=== PATIENT | female | born 1955 | race Caucasian/White ===

== ENCOUNTER 2022-12-16 19:24 | Emergency (ER) | payer BC, SELFPAY ==
--- NOTE | ~2022-12-16 | XR_ITS ---
EXAMINATION: XR chest 2V DATE: 12/16/2022 19:50 INDICATION: Cough. TECHNIQUE: Frontal and lateral views of the chest were obtained. COMPARISON: Chest 2 views 08/26/2011 FINDINGS: The chest demonstrates clear lungs without pneumonia, pleural effusion, or pneumothorax. Th e heart size is normal. Surgical clips in the right upper quadrant are likely from cholecystectomy. IMPRESSION: 1. No acute cardiopulmonary disease. Reviewed, dictated and finalized at location E.
--- NOTE | 2022-12-16 19:30 | ED.URI ---
HPI - URI/Sore Throat General Chief Complaint: Upper Respiratory Infection Stated Complaint: Fatigue,Headache,Lt Side Pain Time Seen by Provider: 12/16/22 19:38 Source: patient and RN notes reviewed Mode of arrival: ambulatory Limitations: no limitations History of Present Illness HPI Narrative: 67-year-old female presents with concern for cough, fatigue, headache, pain in her back at the base of her lungs worse on the left side. She reports she was diagnosed with COVID on December 02, she was treated from her software clerk with paxlovid, steroids and was given a prescription for levofloxacin. She reports low-grade fever she reports her sinus congestion has resolved MD elicited complaint: cough Related Data Home Medications Medication Instructions Recorded Confirmed acidophilus 100 million 1 cap PO DAILY 10/05/22 12/16/22 cell-pectin, citrus 10 mg capsule acyclovir 800 mg tablet 800 mg PO DAILY 10/05/22 12/16/22 aspirin 81 mg tablet,delayed 81 mg PO DAILY 10/05/22 12/16/22 release atorvastatin 20 mg tablet 20 mg PO DAILY 10/05/22 12/16/22 cholecalciferol (vitamin D3) 1,250 1,250 mcg PO WEEKLY 10/05/22 12/16/22 mcg (50,000 unit) capsule furosemide 20 mg tablet 20 mg PO QAM 10/05/22 12/16/22 meloxicam 15 mg tablet 15 mg PO DAILY 10/05/22 12/16/22 metoprolol succinate 50 mg 50 mg PO DAILY 10/05/22 12/16/22 tablet,extended release 24 hr multivitamin 1 tablet PO DAILY 10/05/22 12/16/22 nitroglycerin 0.4 mg sublingual 0.4 mg sublingual Q5M PRN Pain 10/05/22 12/16/22 tablet omeprazole 20 mg capsule,delayed 40 mg PO BID 10/05/22 12/16/22 release potassium gluconate 2.5 mEq tablet 2.5 meq PO DAILY 10/05/22 12/16/22 umeclidinium 62.5 mcg/actuation 1 inh inhalation DAILY 10/05/22 12/16/22 blister powder for inhalation Allergies Allergy/AdvReac Type Severity Reaction Status Date / Time petrolatum,white Allergy Severe BLISTERS Verified 12/16/22 19:38 codeine Allergy Unknown Unknown Verified 12/16/22 19:38 Iodinated Contrast Media Allergy Unknown Unknown Verified 12/16/22 19:38 iodine Allergy Unknown Unknown Verified 12/16/22 19:38 povidone-iodine Allergy Unknown BLISTERS Verified 12/16/22 19:38 soap Allergy Unknown BLISTERS Verified 12/16/22 19:38 tetracycline Allergy Unknown Unknown Verified 12/16/22 19:38 CEFAZOLIN SODIUM Allergy Intermediate ITCHY Uncoded 12/16/22 19:38 EVERYWHERE SHELLFISH Allergy Intermediate BLISTERS Uncoded 12/16/22 19:38 Review of Systems Review of Systems: CONSTITUTIONAL: Reports malaise, fatigue, low-grade fever. EYES: Denies visual changes, redness, or discharge. ENT: Denies rhinorrhea, congestion, sinus pain, otalgia and sore throat. CARDIOVASCULAR: Denies chest pain, palpitations, or edema. RESPIRATORY: Reports cough, back pain with coughing. Denies dyspnea. GASTROINTESTINAL: Denies abdominal pain, nausea, vomiting, diarrhea SKIN: Denies rash or itching. MUSCULOSKELETAL: Denies myalgia. NEUROLOGIC: Denies headache. Reports brain fog All systems reviewed & are unremarkable except as noted in HPI and below PMFSH Past Medical History Medical History Migraine Rheumatoid arteritis Surgical History Surgical History H/O: hysterectomy ~2010 History of back surgery 1989 History of cholecystectomy Family History Family History Sibling Family history of premature coronary heart disease, Onset Age: 45 Carcinoma of colon, Onset Age: 40 Patient's brother is Father Hypertension Family history of elevated blood lipids Family history of diabetes mellitus in first degree relative Family history of coronary artery disease Cerebrovascular accident Mother Hypertension Family history of elevated blood lipids Carcinoma of colon Daughter Depression Anxiety Other Family history o
[2022-12-16 19:32] VITALS: BP 135/78; PULSE 92; RESP 18; TEMP 36.2; O2SAT 97
== END 2022-12-16 20:05 | disposition home or self-care (01) ==
PROVIDERS: Emergency Provider Nurse Practitioner; PCP Physician Assistant
DX: G93.32 Myalgic encephalomyelitis/chronic fatigue syndrome (principal); U09.9 Post COVID-19 condition, unspecified; M06.9 Rheumatoid arthritis, unspecified; Z79.82 Long term (current) use of aspirin
CPT/HCPCS: 71046; 99213; G0463

== ENCOUNTER 2023-12-05 11:11 | Outpatient (CLI) | payer BC, SELFPAY ==
--- NOTE | ~2023-12-05 | XR_ITS ---
Supine and upright views of the abdomen Clinical history: Diarrhea Findings: Bowel gas pattern is nonspecific. No evidence for obstruction or free air. No abnormal mass lesion or calcification is seen. Osseous structures are intact. Impression: No significant abnormality is seen. Reviewed, dictated and finalized at [facility]. Impression: No significant abnormality is seen.
[2023-12-05 19:18] LABS: Hematocrit 40.2 % (37.0-47.0); Hemoglobin 12.6 g/dL (12.0-15.0); Mean Corpuscular HGB Conc 31.3 g/dl (32-36); Mean Corpuscular Hemoglobin 27.6 pg (26-34); Mean Corpuscular Volume 88.2 fl (80-100); Mean Platelet Volume 9.3 fl (7.4-10.4); Platelet Count Result 362 k/mm3 (150-375); Red Blood Count 4.56 M/mm3 (4.2-5.4); Red Cell Distribution Width 14.7 % (11.5-14.5); White Blood Count 8.5 K/mm3 (4.5-10.0)
[2023-12-05 19:26] LABS: Alanine Aminotransferase 29 U/L (6-35); Albumin Level 4.3 g/dL (3.5-5.1); Alkaline Phosphatase 89 U/L (38-126); Anion Gap 8 mmol/L (4-12); Aspartate Amino Transferase 43 U/L (14-36); Bilirubin,Total 0.6 mg/dL (0.2-1.3); Blood Urea Nitrogen 10 mg/dL (7-17); Calcium 9.7 mg/dL (8.4-10.2); Carbon Dioxide 29 mmol/L (22-30); Chloride 101 mmol/L (98-107); Cholesterol 144 mg/dL (0-200); Estimated Glomerular Filt Rate > 60; Glucose 99 mg/dL (65-110); HDL Direct 43 mg/dL; Potassium 3.3 mmol/L (3.4-5.0); Sodium 138 mmol/L (137-145); Triglycerides 231 mg/dL (<150)
[2023-12-05 19:37] LABS: LDL Cholesterol Direct 73 mg/dL
[2023-12-05 20:27] LABS: Erythrocyte Sedimentation Rate 21 mm/hr (0-20)
[2023-12-05 20:37] LABS: Folic Acid > 20.0 ng/mL (2.76->20)
[2023-12-05 20:40] LABS: Hemoglobin A1C 5.8 % (<5.7); Vitamin D 25 Hydroxy 25.8 ng/mL
[2023-12-06 15:32] LABS: ANA Cascade Screen NEGATIVE (NEGATIVE)
== END 2023-12-05 11:12 | disposition home or self-care (01) ==
PROVIDERS: PCP Nurse Practitioner Adult Health; Visit Provider Nurse Practitioner Adult Health
DX: R19.7 Diarrhea, unspecified (principal); I50.9 Heart failure, unspecified; R73.03 Prediabetes; M25.50 Pain in unspecified joint; E78.5 Hyperlipidemia, unspecified; R53.83 Other fatigue; E55.9 Vitamin D deficiency, unspecified; M79.672 Pain in left foot
CPT/HCPCS: 36415; 73630; 74018; 80053; 80061; 82306; 82607; 82746; 83036; 84443; 85027; 85652; 86038; 86225; 86235; 86364

== ENCOUNTER 2023-12-14 15:51 | Outpatient (CLI) | payer BC, SELFPAY | END 2023-12-14 15:52 | disposition home or self-care (01) | LOC: ANHLAB 15:52 | PROVIDERS: PCP Nurse Practitioner Adult Health; Visit Provider Nurse Practitioner Adult Health | DX: R19.7 Diarrhea, unspecified (principal) | CPT/HCPCS: 87045; 87427; 87449 ==

== ENCOUNTER 2024-04-09 09:22 | Outpatient (CLI) | payer BC, SELFPAY ==
[2024-04-09 18:35] LABS: Basophils Percent Auto 0.3 % (0.2-1.2); Eosinophils Absolute Auto 0.3 K/mm3 (0-0.3); Eosinophils Percent Auto 4.2 % (0-4.4); Hematocrit 39.5 % (37.0-47.0); Hemoglobin 12.5 g/dL (12.0-15.0); Immature Granulocyte Absolute 0.01 K/mm3 (0.00-0.031); Immature Granulocyte Percent A 0.2 % (0-0.5); Lymphocytes Absolute Auto 2.63 K/mm3 (0.9-3.2); Lymphocytes Percent Auto 44.1 % (18.3-44.2); Mean Corpuscular HGB Conc 31.6 g/dl (32-36); Mean Corpuscular Hemoglobin 29.1 pg (26-34); Mean Corpuscular Volume 91.9 fl (80-100); Mean Platelet Volume 9.6 fl (7.4-10.4); Monocytes Absolute Auto 0.5 K/mm3 (0.1-0.6); Monocytes Percent Auto 8.6 % (2.6-8.5); Neutrophils Absolute Auto 2.5 K/mm3 (1.3-6.7); Neutrophils Percent Auto 42.6 % (45.5-73.1); Platelet Count Result 273 k/mm3 (150-375)
[2024-04-09 19:04] LABS: Alanine Aminotransferase 38 U/L (6-35); Albumin Level 4.4 g/dL (3.5-5.1); Alkaline Phosphatase 87 U/L (38-126); Anion Gap 8 mmol/L (4-12); Aspartate Amino Transferase 83 U/L (14-36); Bilirubin,Total 1.1 mg/dL (0.2-1.3); Blood Urea Nitrogen 17 mg/dL (7-17); Carbon Dioxide 26 mmol/L (22-30); Chloride 98 mmol/L (98-107); Estimated Glomerular Filt Rate > 60; Glucose 85 mg/dL (65-110); Potassium 4.1 mmol/L (3.4-5.0); Sodium 132 mmol/L (137-145)
[2024-04-09 19:25] LABS: Hemoglobin A1C 6.1 % (<5.7)
[2024-04-09 20:40] LABS: Vitamin D 25 Hydroxy 20.7 ng/mL
== END 2024-04-09 09:23 | disposition home or self-care (01) ==
PROVIDERS: PCP Nurse Practitioner Adult Health; Visit Provider Nurse Practitioner Adult Health
DX: R73.03 Prediabetes (principal); E78.5 Hyperlipidemia, unspecified; R20.2 Paresthesia of skin; E55.9 Vitamin D deficiency, unspecified
CPT/HCPCS: 36415; 80053; 82306; 82607; 83036; 84443; 85025

== ENCOUNTER 2024-05-08 10:09 | Outpatient (CLI) | payer BC, SELFPAY | END 2024-05-08 10:10 | disposition home or self-care (01) | LOC: ANHBWCAUD 10:10 | PROVIDERS: PCP Nurse Practitioner Adult Health; Visit Provider Nurse Practitioner Adult Health | DX: H90.3 Sensorineural hearing loss, bilateral (principal) | CPT/HCPCS: 92557; 92567 ==

== ENCOUNTER 2024-08-12 18:31 | Emergency (ER) | payer BC, SELFPAY ==
--- NOTE | 2024-08-12 18:33 | ED_ITS ---
HPI - Eye Problem General Chief complaint: Eye Problems Stated complaint: lt eye irritation Time Seen by Provider: 08/12/24 18:33 Source: patient Mode of arrival: ambulatory Limitations: no limitations History of Present Illness HPI Narrative: Patient is a 69-year-old female presents with left eye irritation. Patient states she got something in her eye while at [employer] and has been constant pain and watering since. Patient does have some photophobia and blurred vision. Patient has history of permanent lens surgery. Patient states she irrigated eye with eye wash solution at home with no relief of symptoms. Related Data Home Medications ?Medication ?Instructions ?Recorded ?Confirmed ?Last Taken ?Type aspirin 81 mg tablet,delayed 81 mg PO DAILY 10/05/22 04/09/24 Unknown History release atorvastatin 20 mg tablet 20 mg PO DAILY 10/05/22 04/09/24 Unknown History furosemide 20 mg tablet 20 mg PO QAM 10/05/22 04/09/24 Unknown History multivitamin 1 tablet PO DAILY 10/05/22 04/09/24 Unknown History nitroglycerin 0.4 mg sublingual 0.4 mg sublingual Q5M PRN Pain 10/05/22 04/09/24 Unknown History tablet albuterol sulfate 90 mcg/actuation 1 inh inhalation Q4H PRN 12/05/23 04/09/24 Unknown History aerosol inhaler (Ventolin HFA) bronchospasm fluticasone fur. 200 mcg-umeclid 1 inh inhalation DAILY 12/05/23 04/09/24 Unknown History 62.5 mcg-vilant 25 mcg inhalat.powder (Trelegy Ellipta) metoprolol succinate 50 mg See Rx Instructions PO DAILY 12/05/23 04/09/24 Unknown History tablet,extended release 24 hr Allergies Allergy/AdvReac Type Severity Reaction Status Date / Time petrolatum,white Allergy Severe BLISTERS Verified 04/09/24 08:47 codeine Allergy Unknown Unknown Verified 04/09/24 08:47 Iodinated Contrast Media Allergy Unknown Unknown Verified 04/09/24 08:47 iodine Allergy Unknown Unknown Verified 04/09/24 08:47 povidone-iodine Allergy Unknown BLISTERS Verified 04/09/24 08:47 soap Allergy Unknown BLISTERS Verified 04/09/24 08:47 tetracycline Allergy Unknown Unknown Verified 04/09/24 08:47 CEFAZOLIN SODIUM Allergy Intermediate ITCHY Uncoded 04/09/24 08:47 EVERYWHERE SHELLFISH Allergy Intermediate BLISTERS Uncoded 04/09/24 08:47 Review of Systems 2 Review of Systems: All systems reviewed & are unremarkable except as noted in HPI and below Constitutional: Constitutional: Denies body ache(s), Denies fever(s), Denies headache(s), Denies malaise and Denies weakness Eyes: Eyes: Reports blurry vision, Denies loss of vision, Reports eye pain and Reports photophobia ENT: Denies otalgia, Denies headache(s), Denies nasal discharge, Denies sinus pain and Denies sore throat Cardiovascular: Cardiovascular: Denies chest pain, Denies irregular heart rhythm and Denies dyspnea Respiratory: Respiratory: Denies dyspnea Gastrointestinal: Gastrointestinal: Denies abdominal pain, Denies diarrhea, Denies nausea and Denies vomiting Musculoskeletal: Musculoskeletal: Denies back pain, Denies myalgias and Denies arthralgias Integumentary/Breasts: Skin/Breast: Denies pruritus and Denies rash Neurologic: Denies headache(s), Denies loss of vision and Denies weakness Psychiatric: Psychiatric: Reports no additional psychiatric complaints Allergic/Immunologic: Allergic/Immunologic: Reports itchy eyes PMFSH Past Medical History Medical History Hypokalemia Hyperlipidemia Prediabetes Screening for colon cancer Low back pain radiating to both legs BMI 35.0-35.9,adult CAD (coronary artery disease) ASHLEY on CPAP Asthma Encounter to establish care Vitamin D deficiency Migraine Rheumatoid arteritis Surgical History Surgical History History of cholecystectomy H/O: hysterectomy ~2009 History of back surgery 1989 Family History Family History Sibling Family history of premature coronary heart disease, Onset Age: 45 Carcinoma of colon, Onset Age: 40 Patient's brother is Father Hypertension Family history of elevated blood lipids Family history of diabetes mellitus in first degree relative Family history of coronary artery disease Cerebrovascular accident Mother Hypertension Family history of elevated blood lipids Carcinoma of colon Daughter Depression Anxiety Other Family history of hearing loss Family history of osteoporosis Social History Social History Smoking status: Former smoker Alcohol intake: never Substance use: never Substance use type: does not use Do You Feel Safe in your Home?: Yes Living arrangements: with family Gender identity (if verbalized by the patient): Female Agree to blood products: Yes Comments At time of signature, agree with nursing past medical, surgical, social and family history. There is no relevant family history pertinent to the presenting complaint. Exam 2 Const: General: cooperative, healthy appearing, comfortable, no acute distress and well nourished Nutritional Appearance: well nourished O rientation/consciousness: patient oriented x3 Limitations: no limitations HENMT: Head: normal to inspection, normocephalic and atraumatic Ears: e xternal ears normal Face/Nose/Sinus: Normal external nose present, normal facial exam and face symmetric Face and sinus: normal facial exam and face symmetric Mouth: Yes lip normal Eyes: General: appearance normal, both eyes and all related structures V isual Loomis: normal visual loomis by confrontation Alignment and Position: a lignment normal and position normal Periorbital: periorbital findings normal Eyelids: eyelids normal Conjunctivae: conjunctivae normal Sclera: s cleral abnormality left scleral injection diffuse Cornea: corneas abnormal on the left fluorescein used and abrasion at the following clock position (6 o'clock); with no foreign body noted and fluorescein used Pupils: Equal, round and reactive pupils present EOM: EOMs intact bilaterally Direct Ophthalmoscopy: photophobia Other: No hyphema, no foreign body under the lids. Eyes/upper lids images: 1. Corneal abrasion noted. diagram proportional to size, 0.25 cm circular Neck: Neck: normal visual inspection, full ROM, no lymphadenopathy and no meningeal signs Chest: Chest palpation & inspection: normal inspection of the chest Resp: Effort & Inspection: normal respiratory effort and able to speak in complete sentences Auscultation: clear to auscultation bilaterally Cardio: Rate: regular rate Rhythm: regular rhythm Heart sounds: S1 normal heart sound present and S2 normal heart sound present GI: Inspection: normal to inspection Skin: General skin exam: normal color and no rashes or lesions noted Neuro: General: patient oriented x3, moves all extremities and no meningeal signs Cranial nerves: Yes Equal, round and reactive pupils present Speech: normal speech Gait exam (Neuro): Normal gait present Extrem: General: normal to inspection, full ROM and no edema Psych: Appearance: grossly normal and well kempt Mental Status: mental status grossly normal Speech and movement: Normal speech and movement present Affect: normal affect Attitude: cooperative Thought process: Normal thought process present Course Course Emergency Course: Patient is aware of diagnosis, understands and agrees to treatment plan. Anticipatory guidance given. Patient agrees to follow-up as directed and is aware of reasons to seek care at the emergency department. Portions of this record may have been created with voice recognition software Level of Care: Express Care Visit Vital Signs Vital signs: Reviewed MDM - Eye Problem MDM Narrative Medical decision making narrative: Exam performed on patient. Corneal abrasion found. Discussed follow-up ophthalmology if symptoms are not improving. Pt well hydrated appearing, in no respiratory distress, hemodynamically stable. Recommend supportive care. The patient is stable at time of discharge the clinical impression was discussed and the patient was given the opportunity to ask questions, which were addressed as completely as possible given the information available at present. Anticipatory guidance and return to care precautions were discussed and the importance of primary care follow-up was stressed and encouraged. The patient voiced understanding of the plan, indications to return, and the need for follow-up. Exam findings show no acute concerns or changes Patient is appropriate for outpatient treatment and follow-up. Differential Diagnosis Differential diagnosis: Likely corneal abrasion, conjunctivitis and corneal ulcer Medical Records Attestation: I reviewed the patient's medical records. Discharge Plan Discharge Clinical Impression: Corneal abrasion Qualifiers: Encounter type: initial encounter Laterality: left Qualified Code(s): S05.02XA - Injury of conjunctiva and corneal abrasion without foreign body, left eye, initial encounter Patient Disposition: Home, Self-Care Condition: Stable Instructions: Corneal Abrasion (ED) Additional Instructions: Corneal abrasions will heal in 1-2 days. Use antibiotic eye drop as prescribed Keep your eye shut and wearing sunglasses or staying in low light to avoid light sensitivity. Do not touch or rub your eye or use a fabric patch ( pirate's patch ) You may take Tylenol or ibuprofen for pain Follow-up with PCP or insurance associate if condition is not improving in 2-3days. Patient Language: [place] Prescriptions: New ciprofloxacin HCl 0.3 % drops See Rx Instructions .ROUTE .COMPLEX Qty: 10 0RF Rx Instructions: put 1-2 drps in left eye every 2hr up to 8 times/day x2days; then 4 times/day x5days No Action albuterol sulfate [Ventolin HFA] 90 mcg/actuation HFA aerosol inhaler 1 inh inhalation Q4H PRN (Reason: bronchospasm) Trelegy Ellipta 200-62.5-25 mcg blister with device 1 inh inhalation DAILY aspirin 81 mg tablet,delayed release (DR/EC) 81 mg PO DAILY atorvastatin 20 mg tablet 20 mg PO DAILY furosemide 20 mg tablet 20 mg PO QAM multivitamin Tablet 1 tablet PO DAILY nitroglycerin 0.4 mg tablet, sublingual 0.4 mg sublingual Q5M PRN (Reason: Pain) Rx Instructions: do not exceed 3 doses per episode metoprolol succinate 50 mg tablet extended release 24 hr See Rx Instructions PO DAILY Rx Instructions: Take 1 in am and 1/2 in pm orally daily; omeprazole 40 mg capsule,delayed release(DR/EC) 40 mg PO BID Qty: 180 3RF metformin 500 mg tablet extended release 24 hr 500 mg PO DAILY Qty: 90 3RF potassium chloride 20 mEq tablet extended release 20 meq PO DAILY Qty: 90 3RF cholecalciferol (vitamin D3) 1,250 mcg (50,000 unit) capsule 1,250 mcg PO WEEKLY Qty: 12 1RF acyclovir 800 mg tablet 800 mg PO DAILY Qty: 90 3RF Wegovy 1.7 mg/0.75 mL pen injector 1.7 mg subcut WEEKLY Qty: 3 0RF Rx Instructions: administer weeks 13 through 16 of therapy Follow-up/Referrals: Gail Solis APRN [Primary Care Provider] - 3 Days Time of Disposition: 19:06
[2024-08-12 18:41] VITALS: BP 106/87; PULSE 72; RESP 18; TEMP 36.3; O2SAT 98
[2024-08-12] MEDS: DACRIOSE EYE IRRIGATION 118 ML BOTTLE LEFT EYE (18:53)
[2024-08-12] MEDS: TETRACAINE HCL 0.5% OPHTH SOLN 4 ML BTL LEFT EYE (18:53)
[2024-08-12] MEDS: FLUORESCEIN SOD 1 MG/STRIP LEFT EYE (18:53)
--- OUTSIDE RECORDS SUMMARY | 2024-08-16 10:51 | XMS_ITS | CONTINUITY OF CARE DOCUMENT ---
Author Name abelino roca Address Unknown Organization [facility] Office Address [id number] [place] [address] [address] [place] [address] Phone [phone] Care Team Providers Care Whittling Room Operator Name Role Phone Ganga OKEEFE, Unavailable [phone] BETZAIDA OKEEFE, MARCIAL Unavailable BETZAIDA OKEEFE, MARCIAL Unavailable INSURANCE PROVIDERS Payer name Policy type / Coverage type [place] red green party ID [facility] [id number]
--- OUTSIDE RECORDS SUMMARY | 2024-08-16 10:52 | XMS_ITS | Referral Summary ---
Author Organization [facility] [employer] Address [address] [place] [address] Care Team Providers Care Laborer Car Barn Name Role Phone Estrella Muhammad MD Primary Care Provider Source Comments [facility],non-owned Affiliates and Associated Physician Practices is amultiple site organization consisting of ambulatory clinics and hospital sitesin [place], [place], [place] and [place]. This disclosure is being madepursuant to the Care Everywhere program and may not contain all information available regarding this patient. Last updated 18.[facility] [employer] Allergies Active Allergy Reactions Criticality Noted Date Comments Codeine Psychiatric Medium 11/06/2018 Povidone Iodine Itching 11/06/2018 Shellfish Allergy Other 11/06/2018 Blocks her throat, itching and blistering Medications * Be aware that medications may not be up to date on this document. Alwaysverify current medications with the patient. Medication Sig Dispensed Refills Start Date End Date Status BREO ELLIPTA 100-25 MCG/INH inhaler Inhale 1 puff by mouth once daily 10/18/2018 Active furosemide (LASIX) 20 MG tablet Take 20 mg by mouth once daily 10/24/2018 Active metoprolol succinate XL 24hr (TOPROL XL) 50 MG tablet Take 50 mg by mouth once daily 1.5 tablets Daily 10/16/2018 Active INCRUSE ELLIPTA 62.5 MCG/INH inhaler Inhale 1 puff by mouth once daily 10/18/2018 Active acyclovir (ZOVIRAX) 800 MG tablet Take 800 mg by mouth once daily Active potassium chloride ER (KLOR-CON M) 10 MEQ tablet Take 10 mEq by mouth once daily Active Multiple Vitamin (MULTI VITAMIN DAILY PO) Active atorvastatin (LIPITOR) 10 MG tablet Take 10 mg by mouth at bedtime Active Probiotic Product (PROBIOTIC DAILY PO) Acti ve albuterol HFA (PROVENTIL;VENTOLIN; PROAIR) 108 (90 BASE) MCG/ACT inhalerIndications:U ncomplicated asthma, unspecified asthma severity, unspecified whether persistent (HCC) Inhale 2 puffs by mouth every 6 hours as needed 11/06/2018 Active omeprazole EC (PRILOSEC OTC) 20 MG tabletIndications:Ga stroesophageal reflux disease, esophagitis presence not specified Take 1 tablet by mouth 2 times daily 180 tablet 3 01/02/2019 Active omeprazole (PRILOSEC) 20 MG capsuleIndications:G astroesophageal reflux disease, esophagitis presence not specified TAKE 1 CAPSULE BY MOUTH TWICE DAILY 180 capsule 3 06/06/2019 Active Immunizations Name Administration Dates Next Due INFLUENZA VACCINE 05/10/2018 PNEUMOCOCCAL PPSV23 11/07/2015 ZOSTER VACCINE, LIVE 01/02/2014 Social History Tobacco Use Types Packs/Day Years Used Date Smoking Tobacco: Former Cigarettes 0.3 15 0 08/08/1988 - 08/08/2003 Smokeless Tobacco: Never Tobacco Cessation:Counseling Given: Yes Alcohol Use Standard Drinks/Week Comments No 0 (1 standard drink = 0.6 oz pur e alcohol) Sex and Gender Information Value Date Recorded Sex Assigned at Not on file Gender Identity Not on file Sexual Orientation Not on file Last Filed Vital Signs Vital Sign Reading Time Taken Comments Blood Pressure 121/74 11/06/2018 3:20 PM CDT Pulse 70 11/06/2018 3:20 PM CDT Temperature - - Respiratory Rate - - Oxygen Saturation - - Inhaled Oxygen Concentration - - Weight 72.1 kg (159 lb) 01/02/2019 9:10 AM CDT Height 149.9 cm (4' 11 ) 01/02/2019 9:10 AM CDT Body Mass Index 32.11 01/02/2019 9:10 AM CDT Plan of Treatment Not on file Care Teams Laborer Car Barn Relationship Specialty Start Date End Date Estrella Muhammad MD [address] [place] [address] [place] [id number] PCP - General 02/06/18
--- OUTSIDE RECORDS SUMMARY | 2024-08-16 10:52 | XMS_ITS | Clinical Summary ---
Author Organization [facility] [address] Address [address] [place] [address] Care Team Providers Care Embosser Apprentice Name Role Phone Gail Solis ELLIOTT Primary Care Provider [phone] Allergies Active Allergy Reactions Criticality Noted Date Comments Codeine Iodine Medium Other Other (See comments) Low 11/06/2018 Blocks her throat, itching and blistering White Petrolatum Unknown Medium Shellfish Derived Anaphylaxis High 03/19/2022 Medications omeprazole (PriLOSEC) 20 mg capsule Take 1 capsule (20 mg total) by mouth daily Active cyclobenzaprin e (FLEXERIL) 10 mg tablet Take 1 tablet (10 mg total) by mouth 2 (two) times a day as needed for muscle spasms Active meloxicam (MOBIC) 15 mg tablet Take 1 tablet (15 mg total) by mouth daily Active acyclovir (ZOVIRAX) 800 mg tablet Take 1 tablet (800 mg total) by mouth daily Active cholecalcifero l (VITAMIN D-3) 50,000 unit capsule Take 1 capsule (50,000 Units total) by mouth once a week Active acidophilus-pe ctin, citrus 100 million cell-10 mg capsule Take by mouth daily Active aspirin 81 mg tablet Take 1 tablet (81 mg total) by mouth 2 (two) times a day Active multivitamin capsule Take 1 capsule by mouth daily Active nitroglycerin (NITROSTAT) 0.[address] 1 tablet (0.4 mg total) under the tongue every 5 (five) minutes as needed for chest pain Max 3 doses. 30 tablet 11 08/26/20 22 04/02/2 025 Active fluticasone propionate (FLONASE) 50 mcg/actuation nasal spray Administer 1 spray into each nostril daily Active EPINEPHrine 0.3 mg/0.3 mL auto-injection syringe INJECT 0.3MG IN THE MUSCLE ONE TIME DIRECTED IF CONTACT WITH SHELLFISH 05/17/20 Active famotidine (PEPCID) 40 mg tablet Take 1 tablet (40 mg total) by mouth daily 06/23/20 22 Active hydroCHLOROthi azide (MICROZIDE) 12.5 mg capsule Take 1 capsule (12.5 mg total) by mouth daily 06/26/20 22 Active metFORMIN XR (GLUCOPHAGE XR) 500 mg 24 hr tablet daily Active montelukast (SINGULAIR) 10 mg tablet Take 1 tablet (10 mg total) by mouth daily 05/31/20 22 Active rosuvastatin (CRESTOR) 10 mg tablet Take 1 tablet (10 mg total) by mouth daily 06/26/20 22 Active potassium chloride ER 20 mEq CR tablet Take 1 tablet (20 mEq total) by mouth daily 02/10/20 24 Active fluticasone-um eclidin-vilant er (Trelegy Ellipta) 200-62.5-25 mcg inhaler Inhale 1 puff daily 30 each 03/12/20 24 Active albuterol HFA (PROVENTIL HFA,VENTOLIN HFA,PROAIR HFA) 90 mcg/actuation inhaler Inhale 2 puffs every 6 (six) hours as needed for wheezing or shortness of breath 1 each 03/12/20 24 Active Wegovy 0.25 mg/0.5 mL auto-injector Inject 0.5 mL (0.25 mg total) under the skin every 7 days 04/23/20 24 Active furosemide (LASIX) 20 mg tablet TAKE 1 TABLET(20 MG) BY MOUTH TWICE DAILY 180 tablet 07/02/20 24 Active metoprolol XL (TOPROL-XL) 50 mg extended release tablet TAKE 1 AND 1/2 TABLETS(75 MG) BY MOUTH DAILY 135 tablet 08/08/19 25 Active metoprolol XL (TOPROL-XL) 50 mg extended release tablet TAKE 1 AND 1/2 TABLETS(75 MG) BY MOUTH DAILY 135 tablet 07/02/20 24 025 Discontinued Active Problems Problem Noted Date Diagnosed Date Severe persistent asthma without complication Assessment & Plan (06/14/2024 2:15 PM WOOD MECHANIST): Continue Trelegy Ellipta 200 one puff daily Albuterol as needed only, we have discussed indications for use Avoid triggers Check CBC to assess for peripheral eosinophilia We have discussed signs and symptoms that would require earlier evaluation or change to her plan of care Centrilobular emphysema 06/14/2024 Assessment & Plan (06/14/2024 2:17 PM WOOD MECHANIST): Continue maintenance inhaled therapy with Trelegy Ellipta 200 She had decreased DLCO on pulmonary function testing and some mild emphysematous changes per her CT chest. Request Alpha1 results from [facility] Gastroesophageal reflux disease without esophagi tis 06/14/2024 Assessment & Plan (06/14/2024 2:16 PM WOOD MECHANIST): Continue PPI twice daily Continue famotidine 40 mg once daily Avoid trigger foods No eating 2-3 hours before bed Weight loss She has followed with GI and had an EGD that revealed significant gastritis but no ulcerations I have recommended she reestablish with GI in the area Obesity (BMI 30.0-34.9) 05/18/2024 Morbid (severe) obesity due to excess calories 0 10/25/2023 Palpitations 03/19/2022 Moderate persistent asthma without complication 12/04/2021 Family history of premature CAD 12/04/2021 Other chest pain 03/20/2018 TERAN (dyspnea on exertion) 03/20/2018 Chronic fatigue 03/20/2018 Chronic diastolic heart failure 03/20/2018 ASHLEY on CPAP 03/20/2018 HTN (hypertension), benign 03/20/2018 Mixed hyperlipidemia 03/20/2018 Encounters Date Type Department Care Team Description 06/29/2024 Telephone [facility] Pulmonary at [address] [place] [address] Pamela Stock LPN dupixent 06/14/2024 11:30 AM WOOD MECHANIST Lab [address] Severe persistent asthma without complication 06/14/2024 10:30 AM WOOD MECHANIST Office Visit [facility] Pulmonary at [address] [place] [address] Dalia Colón NP Severe persistent asthma without complication (Primary Dx); Centrilobular emphysema (HCC); Gastroesophageal reflux disease without esophagitis 05/18/2024 8:00 AM CDT Office Visit [facility] Cardiology at [address] [place] [address] Jason Gomez MD Palpitations (Primary Dx); HTN (hypertension), benign; Family history of premature CAD; Chronic diastolic heart failure (HCC); ASHLEY on CPAP; Mixed hyperlipidemia; Other chest pain; Obesity (BMI 30.0-34.9) from Last 3 Months Surgical History Surgery Date Site/Laterality Comments BACK SURGERY PELVIC LAPAROSCOPY Medical History Medical History Date Comments CHF (congestive heart failure) (CMS/HCC) (HCC) Hyperlipidemia Hypertension Asthma Chest pain Shortness of breath Family History Medical History Relation Name Comments Coronary artery disease Brother 1 Coronary artery disease Brother 2 Atrial fibrillation Father Heart attack Father Stroke Father Heart disease Mother Relation Name Status Comments Brother 1 Alive first PTCA age 37 Brother 2 Alive CABG age 68 Father (Age 72) Mother Social History Tobacco Use Types Packs/Day Years Used Date Smoking Tobacco: Former Cigarettes 0.3 51.1 S tarted: 1974 Smokeless Tobacco: Never Tobacco Cessation:Counseling Given: Not Answered Alcohol Use Standard Drinks/Week Comments No 0 (1 standard drink = 0.6 oz pur e alcohol) AUDIT-C Answer Date Recorded Q1: How often do you have a drink containing alc ohol? Never 06/14/2024 Average Number of Drinks Not on file 024 Frequency of Binge Drinking Not on file 05/26 Personal Safety Answer Date Recorded Have you ever been in or are you currently in a harmful physical or emotional relationship or is someone making you feel afraid or unsafe? Denies 08/18/2023 Comments Unknown Sex and Gender Information Value Date Recorded Sex Assigned at Not on file Legal Sex Female 12:31 AM WOOD MECHANIST Gender Identity Not on file Sexual Orientation Not on file Obstetrics History Last Filed Vital Signs Vital Sign Reading Time Taken Comments Blood Pressure 122/64 06/14/2024 10:52 AM WOOD MECHANIST Pulse 75 06/14/2024 10:52 AM WOOD MECHANIST Temperature 36.3 ??C (97.3 ??F) 06/14/2024 10:[address] Respiratory Rate 16 06/14/2024 10:52 AM WOOD MECHANIST Oxygen Saturation 99% 06/14/2024 10:52 AM WOOD MECHANIST Inhaled Oxygen Concentration - - Weight 71.9 kg (158 lb 8 oz) 06/14/2024 10:52 AM WOOD MECHANIST Height 147.3 cm (4' 10 ) 06/14/2024 10:52 AM WOOD MECHANIST Body Mass Index 33.13 06/14/2024 10:52 AM WOOD MECHANIST Plan of Treatment Health Maintenance Due Date Last Done Comments Breast Cancer Screening-Mammogram 1955 Colon Cancer Screening-Colonoscopy 1955 Depression Screening 1955 Fall Risk Assessment 1955 Hepatitis C Screening 1955 Osteoporosis Screening-Bone Density Scan 1955 DTaP/Tdap/Td Vaccine (1 - Tdap) 1966 Hepatitis B Screening 1973 Zoster Vaccine (2 of 3) 07/08/2016 05/13/2016, 01/02 Pneumococcal vaccine 65+ (2 of 2 - PCV) 05/04/2018 05/04/2017, 05/13/2016, 11/07/2015 Well Visit 65+ 2020 Covid-19 Vaccine (3 - 2023-2 5 season) 2024 10/07/2020, 09/16/2020 Influenza Vaccine (#1) 2024 , 05/02/2020, 04/27/2019, Additional history exists Procedures Procedure Name Priority Date/Time Associated Diagnosis Comments DIFFERENTIAL AUTO Routine 06/14/2024 11: 32 AM WOOD MECHANIST Severe persistent asthma without complication CBC WITH AUTO DIFFERENTIAL Routine 06/14/2024 11:32 AM WOOD MECHANIST Severe persistent asthma without complication from Last 3 Months Results * Differential, auto (06/14/2024 11:32 AM WOOD MECHANIST) Neutrophil abs 3.7 1.5 - 6.5 K/cumm Imm gran abs 0.0 0.0 - 0.1 K/cumm [facility] ([place]) Lymphocyte abs 3.1 0.8 - 3.3 K/cumm [facility] ([place]) Monocyte abs 0.8 0.2 - 0.8 K/cumm [facility] ([place]) Eosinophil abs 0.4 0.0 - 0.5 K/cumm [facility] ([place]) Basophil abs 0.1 0.0 - 0.1 K/cumm [facility] ([place]) Neutrophil pct 46.1 % [facility] ([place] Comment: Interpretive Data Percent cell count reference ranges are not reported, since discordance with absolute values may lead to misinterpretation of CBC data. Current Interpretive Data was last revised on 2017. Imm gran pct 0.4 % [facility] ([place]) Comment: Interpretive Data Percent cell count reference ranges are not reported, since discordance with absolute values may lead to misinterpretation of CBC data. Current Interpretive Data was last revised on 2017. Lymphocyte pct 38.1 % [facility] ([place]) Comment: Interpretive Data Percent cell count reference ranges are not reported, since discordance with absolute values may lead to misinterpretation of CBC data. Current Interpretive Data was last revised on 2017. Monocyte pct 10.1 % [facility] ([place]) Comment: Interpretive Data Percent cell count reference ranges are not reported, since discordance with absolute values may lead to misinterpretation of CBC data. Current Interpretive Data was last revised on 2017. Eosinophil pct 4.7 % [facility] ([place] Comment: Interpretive Data Percent cell count reference ranges are not reported, since discordance with absolute values may lead to misinterpretation of CBC data. Current Interpretive Data was last revised on 2017. Basophil pct 0.6 % [facility] ([place]) Comment: Interpretive Data Percent cell count reference ranges are not reported, since discordance with absolute values may lead to misinterpretation of CBC data. Current Interpretive Data was last revised on 2017. Blood 06/14/2024 11:3 2 AM WOOD MECHANIST 06/14/2024 1:27 PM WOOD MECHANIST Dalia Colón KITCHEN CLERK LAB BLOOD ORDERABLES Final Result [facility] ([place]) 1 [facility] Department [place] [address] * CBC with auto differential (06/14/2024 11:32 AM WOOD MECHANIST) WBC 8.1 3.8 - 9.9 K/cumm Hgb 12.8 11.9 - 15.5 g/dL [facility] ([place]) Hct 38.5 35.6 - 45.5 % [facility] ([place]) Plt 304 150 - 400 K/cumm [facility] ([place]) MPV 9.8 9.1 - 12.3 fL [facility] ([place]) RBC 4.49 3.90 - 5.20 M/cumm [facility] ([place]) MCV 85.7 81.3 - 96.4 fL [facility] ([place]) MCH 28.5 27.1 - 33.3 pg [facility] ([place]) MCHC 33.2 32.3 - 35.7 g/dL [facility] ([place]) RDW CV 14.7 11.1 - 14.9 % [facility] ([place]) RDW SD 46.6 35.7 - 48.1 fL [facility] ([place]) NRBC abs 0.00 0.00 - 0.01 K/cumm [facility] ([place]) Blood 06/14/2024 11:3 2 AM WOOD MECHANIST 06/14/2024 1:27 PM WOOD MECHANIST us Dalia Colón KITCHEN CLERK LAB BLOOD ORDERABLES Final Result [facility] ([place]) 1 [facility] Department [place] [address] from Last 3 Months [place] [id number] MEDICARE [facility] [place] [id number] [facility] [employer] Care Teams Embosser Apprentice Relationship Specialty Start Date End Date Gail Solis NP [facility] [facility] [place] [address] PCP - General Nurse Practitioner 05/18/24
--- OUTSIDE RECORDS SUMMARY | 2024-08-16 10:52 | XMS_ITS | Referral Summary ---
Author Organization [facility] [address] Address [address] [place] [address] Care Team Providers Care Executive Cyber Leader Name Role Phone Chionuzhat Gail ELLIOTT Primary Care Provider Encounters Date Type Department Care Team Description 06/29/2024 Telephone [facility] Pulmonary at [address] [place] [address] Pamela Stock LPN dupixent 06/14/2024 11:30 AM BRINE ROOM LABORER Lab [address] Severe persistent asthma without complication 06/14/2024 10:30 AM BRINE ROOM LABORER Office Visit [facility] Pulmonary at [address] [place] [address] Dalia Colón NP Severe persistent asthma without complication (Primary Dx); Centrilobular emphysema (HCC); Gastroesophageal reflux disease without esophagitis 05/18/2024 8:00 AM CDT Office Visit [facility] Cardiology at [address] [place] [phone] Jason Gomez MD Palpitations (Primary Dx); HTN (hypertension), benign; Family history of premature CAD; Chronic diastolic heart failure (HCC); ASHLEY on CPAP; Mixed hyperlipidemia; Other chest pain; Obesity (BMI 30.0-34.9) from Last 3 Months Allergies Active Allergy Reactions Criticality Noted Date [...] chest pain Max 3 doses. 30 tablet 03/19/20 22 025 Active fluticasone propionate (FLONASE) 50 mcg/actuation nasal spray Administer 1 spray into each nostril daily Active EPINEPHrine 0.3 mg/0.3 mL auto-injection syringe INJECT 0.3MG IN THE MUSCLE ONE TIME DIRECTED IF CONTACT WITH SHELLFISH 05/17/20 22 Active famotidine (PEPCID) 40 mg tablet Take [...] complication Assessment & Plan (06/14/2024 2:15 PM BRINE ROOM LABORER): Continue Trelegy Ellipta 200 one puff daily Albuterol as needed only, we have discussed indications for use Avoid triggers Check CBC to assess for peripheral eosinophilia We have discussed signs and symptoms that would require earlier evaluation or change to her plan of care Centrilobular emphysema 06/14/2024 Assessment & Plan (06/14/2024 2:17 PM BRINE ROOM LABORER): Continue maintenance inhaled therapy with Trelegy Ellipta 200 She had decreased DLCO on pulmonary function testing and some mild emphysematous changes per her CT chest. Request Alpha1 results from [facility] Gastroesophageal reflux disease without esophagi tis 06/14/2024 Assessment & Plan (06/14/2024 2:16 PM BRINE ROOM LABORER): Continue PPI twice daily Continue famotidine 40 [...] HTN (hypertension), benign 03/20/2018 Mixed hyperlipidemia 03/20/2018 Social History Tobacco Use Types Packs/Day Years [...] on file Legal Sex Female 12:31 AM BRINE ROOM LABORER Gender Identity Not on file Sexual Orientation Not on file Last Filed Vital Signs Vital Sign Reading Time Taken Comments Blood Pressure 122/64 06/14/2024 10:52 AM BRINE ROOM LABORER Pulse 75 06/14/2024 10:52 AM BRINE ROOM LABORER Temperature 36.3 ??C (97.3 ??F) 06/14/2024 10:[address] Respiratory Rate 16 06/14/2024 10:52 AM BRINE ROOM LABORER Oxygen Saturation 99% 06/14/2024 10:52 AM BRINE ROOM LABORER Inhaled Oxygen Concentration - - Weight 71.9 kg (158 lb 8 oz) 06/14/2024 10:52 AM BRINE ROOM LABORER Height 147.3 cm (4' 10 ) 06/14/2024 10:52 AM BRINE ROOM LABORER Body Mass Index 33.13 06/14/2024 10:52 AM BRINE ROOM LABORER Plan of Treatment Not on file Procedures Procedure Name Priority Date/Time Associated Diagnosis Comments DIFFERENTIAL AUTO Routine 06/14/2024 11: 32 AM BRINE ROOM LABORER Severe persistent asthma without complication CBC WITH AUTO DIFFERENTIAL Routine 06/14/2024 11:32 AM BRINE ROOM LABORER Severe persistent asthma without complication from Last 3 Months Results * Differential, auto (06/14/2024 11:32 AM BRINE ROOM LABORER) Neutrophil abs 3.7 1.5 - 6.5 K/cumm [...] on 2017. Blood 06/14/2024 11:3 2 AM BRINE ROOM LABORER 06/14/2024 1:27 PM BRINE ROOM LABORER us Dalia Colón PEDIATRIC GENETIC COUNSELOR LAB BLOOD ORDERABLES Final Result [facility] ([place] 1 [facility] Department [place] [address] * CBC with auto differential (06/14/2024 11:32 AM BRINE ROOM LABORER) WBC 8.1 3.8 - 9.9 K/cumm Hgb [...] 28.5 27.1 - 33.3 pg [facility] ([place]) MCHC 33.2 32.3 - 35.7 g/dL [facility] ([place]) RDW CV 14.7 11.1 - 14.9 % [facility] ([place]) RDW SD 46.6 35.7 - 48.1 fL [facility] ([place]) NRBC abs 0.00 0.00 - 0.01 K/cumm [facility] ([place]) Blood 06/14/2024 11:3 2 AM BRINE ROOM LABORER 06/14/2024 1:27 PM BRINE ROOM LABORER us Dalia Colón PEDIATRIC GENETIC COUNSELOR LAB BLOOD ORDERABLES Final Result [facility] ([place]) 1 [facility] Department [place] [address] from Last 3 Months Insurance [facility] MEDIC[facility] [place] [phone] [facility] [employer] Care Teams Executive Cyber Leader Relationship Specialty Start Date End Date Gail Solis NP [address] [place] [address] [place] [address] PCP - General Nurse Practitioner 05/18/24
--- OUTSIDE RECORDS SUMMARY | 2024-08-16 10:52 | XMS_ITS | Clinical Summary ---
Author Organization [facility] Address [address] [place] [address]. [place] [address] [place] [address] Care Team Providers Care Supervisor Pole Yard Name Role Phone Gail Solis NP Primary Care Provider [phone] Allergies Active Allergy Reactions Criticality Noted Date Comments Codeine Hives,Other (see comment) Medium 11/06/2018 Iodine Hives High 05/14/2022 Petrolatum Rash Low 05/14/2022 Povidone Iodine Itching 11/06/2018 Shellfish-Derived Products Anaphylaxis High 03/19/20 22 Medications Umeclidinium [place] 62.5 MCG/ACT AEROSOL POWDER, BREATH ACTIVATED Inhale 62.5 mcg into the lungs daily. Active traMADol (ULTRAM) 50 MG tablet Take 1 tablet (50 mg total) by mouth every 4 (four) hours as needed. FOR PAIN 11/27/19 22 Active acyclovir (ZOVIRAX) 800 MG tablet Take 1 tablet (800 mg total) by mouth daily. 03/31/20 22 Active albuterol (PROVENTIL) (2.5 MG/3ML) 0.083% nebulizer solution USE 3 ML VIA NEBULIZER THREE TIMES DAILY 07/15/20 21 Active albuterol sulfate HFA 108 (90 Base) MCG/ACT inhaler albuterol sulfate HFA 90 mcg/actuation aerosol inhaler INHALE 2 PUFFS BY MOUTH EVERY 4 TO 6 HOURS NEEDED Active rosuvastatin (CRESTOR) 10 MG tablet Take 1 tablet (10 mg total) by mouth nightly at bedtime. 06/26/20 Active pregabalin (LYRICA) 75 MG capsule pregabalin 75 mg capsule Active Potassium Gluconate 2.5 MEQ Tab Active omeprazole (PRILOSEC) 40 MG capsule 2 (two) times daily. Active nitroglycerin (NITROSTAT) 0.[address] 1 TABLET UNDER THE TONGUE EVERY 5 MINUTES NEEDED FOR CHEST PAIN MAX 3 DOSES PER EPISODE 03/19/20 Active montelukast (SINGULAIR) 10 MG tablet Take 1 tablet (10 mg total) by mouth daily. DIRECTED 05/31/20 Active metoprolol succinate ER (TOPROL-XL) 50 MG 24 hr tablet Take 1.5 tablets (75 mg total) by mouth daily. 06/29/20 Active metFORMIN ER (GLUCOPHAGE-X R) 500 MG 24 hr tablet daily. Active hydroCHLOROth iazide (MICROZIDE) 12.5 MG capsule Take 1 capsule (12.5 mg total) by mouth daily. 06/26/20 Active furosemide (LASIX) 20 MG tablet Take 1 tablet (20 mg total) by mouth daily. 03/31/20 Active Fluticasone-U meclidin-Randall nt 100-62.5-25 MCG/ACT AEROSOL POWDER, BREATH ACTIVATED Inhale 1 puff into the lungs daily. 12/18/19 Active famotidine (PEPCID) 40 MG tablet Take 1 tablet (40 mg total) by mouth nightly at bedtime. 06/23/20 Active EPINEPHrine 0.3 MG/0.3ML injection INJECT 0.3MG IN THE MUSCLE ONE TIME DIRECTED IF CONTACT WITH SHELLFISH 05/17/20 Active aspirin EC (ECOTRIN) 81 MG tablet Take 1 tablet (81 mg total) by mouth 2 (two) times daily. Active alendronate (FOSAMAX) 70 MG tablet Take 1 tablet (70 mg total) by mouth once a week. 12/05/19 Active CHOLECALCIFER OL 1.25 mg capsule Take 1 capsule (50,000 Units total) by mouth once a week. Active Multiple Vitamin (MULTIVITAMIN ) capsule Take 1 capsule by mouth daily. Active WEGOVY 1 mg/dose injection (PEN) INJECT 1 MG SUBCUTANEOUSLY ONCE A WEEK, EVERY 7 DAYS 06/19/20 24 Active TRELEGY ELLIPTA 200-62.5-25 MCG/ACT AEROSOL POWDER, BREATH ACTIVATED Inhale 1 puff into the lungs daily. 03/12/20 24 Active acyclovir (ZOVIRAX) 800 MG tablet acyclovir 800 mg tablet TAKE 1 TABLET BY MOUTH EVERY DAY 2024 Discontinued methylPREDNIS olone OVIDIO, (MEDROL DOSEPAK) 4 MG tabletIndicat ions:Sacroili itis (CMS/HCC) Take 1 tablet (4 mg total) by mouth see administration instructions. Follow package directions 1 each 05/14/20 22 2024 Discontinued meloxicam (MOBIC) 15 MG tablet Take 1 tablet (15 mg total) by mouth daily. 06/29/202024 Discontinued Active Problems Problem Noted Date Diagnosed Date Lumbar radiculopathy 06/28/2024 Encounters Date Type Department Care Team Description 07/31/2024 9:00 AM PATIENT REPRESENTATIVE - 07/31/2024 9:20 AM [facility] Surgery [facility] [place] [address] [id number] Jody Ferrell MD INJECTION EPIDURAL [id number] 07/31/2024 7:55 AM PATIENT REPRESENTATIVE - 07/31/2024 9:36 AM [facility] Hospital Encounter [facility] [place] [address] [id number] Jody Ferrell MD Discharge Disposition: Home or Self Care (Routine Discharge) 07/31/2024 Travel 06/28/2024 10:26 AM PATIENT REPRESENTATIVE - 06/28/2024 11:59 PM [facility] Hospital Encounter [facility] [place] [address] [id number] Yuli Meza CNP Discharge Disposition: Home or Self Care (Routine Discharge) 06/28/2024 Travel from Last 3 Months Social History Tobacco Use Types Packs/Day Years Used Date Smoking Tobacco: Former Smokeless Tobacco: Never Tobacco Cessation:Counseling Given: Not Answered Alcohol Use Standard Drinks/Week Comments Not Currently 0 (1 standard drink = 0.6 oz pur e alcohol) Comments No Sex and Gender Information Value Date Recorded Sex Assigned at Not on file Legal Sex Female 12:25 PM PATIENT REPRESENTATIVE Gender Identity Not on file Sexual Orientation Not on file Last Filed Vital Signs Vital Sign Reading Time Taken Comments Blood Pressure 136/82 07/31/2024 9:15 AM PATIENT REPRESENTATIVE Pulse 80 07/31/2024 9:15 AM PATIENT REPRESENTATIVE Temperature 36.5 ??C (97.7 ??F) 07/31/2024 8:20 AM CS T Respiratory Rate 18 07/31/2024 9:15 AM PATIENT REPRESENTATIVE Oxygen Saturation 99% 07/31/2024 9:15 AM PATIENT REPRESENTATIVE Inhaled Oxygen Concentration - - Weight 67.6 kg (149 lb) 07/31/2024 8:20 AM PATIENT REPRESENTATIVE Height 149.9 cm (4' 11 ) 07/31/2024 8:20 AM PATIENT REPRESENTATIVE Body Mass Index 30.09 07/31/2024 8:20 AM PATIENT REPRESENTATIVE Plan of Treatment Health Maintenance Due Date Last Done Comments Colorectal Cancer Screening Colonoscopy (10 Years) 1955 PHQ-2 (Physician [place]) 1967 Hepatitis C 1973 DTaP, Tdap and Td Vaccines ( 1 - Tdap) 1974 Mammogram Screening 1995 Zoster Vaccines (2 of 3) 07/08/2016 016, 01/02/2014 Dexa Scan (General) 2020 Pneumococcal Vaccine: 65+ Years (2 of 2 - PCV) 2020 11/07/2015 COVID-19 Vaccine (3 - 2023-2 5 season) 2024 10/07/2020, 09/16/2020 Influenza Adult (#1) 2024 05/02/2020, 05/10/2018, 05/04/2017 RSV Immunization or 60+ Years (1 - 1-dose 75+ series) 2030 Meningococcal B Vaccine Aged Out No l onger eligible based on patient's age to complete this topic Meningococcal Vaccine Aged Out No vazquez hua eligible based on patient's age to complete this topic RSV Immunizations Under 20 Months Aged Out No longer eligible b ased on patient's age to complete this topic Procedures Procedure Name Priority Date/Time Associated Diagnosis Comments NJX AA&/STRD TFRML EPI LUMBAR/SACRAL 1 LEVEL 07/31/2024 9:06 AM PATIENT REPRESENTATIVE Lumbar radiculopathy POCT GLUCOSE - GILLETTE DOCKED DEVICE Routine 07/31/2024 8:23 AM PATIENT REPRESENTATIVE XR PAIN CLINIC C-ARM Today 07/31/2024 8:01 AM PATIENT REPRESENTATIVE from Last 3 Months Results * POCT glucose (07/31/2024 8:23 AM PATIENT REPRESENTATIVE) GLUCOSE POC 85 70 - 99 mg/dL 07/31/2024 8:24 AM PATIENT REPRESENTATIVE [facility] 07/31/2024 8:23 AM PATIENT REPRESENTATIVE us Jody Ferrell MD POCT ORDERABLES - DEVICE Payal l Result Performing Organization Address City/State/[facility] [[email or web address]] Co de Phone Number [facility] [address] [place] [address], [place] [phone] * XR PAIN CLINIC C-ARM (07/31/2024 8:01 AM PATIENT REPRESENTATIVE) Narrative Radiology, Technologist - 07/31/2024 8:01 AM PATIENT REPRESENTATIVE This report does not contain a radiologist's interpretation. Please review associated procedure and/or operative report. us Jody Ferrell MD GENERAL IMAGING Final Result from Last 3 Months Insurance [facility] Care Teams Supervisor Pole Yard Relationship Specialty Start Date End Date Gail Solis NP [address] [place] [address] PCP - General NURSE PRACTITIONER 02/18/21
--- OUTSIDE RECORDS SUMMARY | 2024-08-16 10:52 | XMS_ITS | Clinical Summary ---
Author Organization [facility] Address [address] [place] [address] Care Team Providers Care Rubber Thread Spooler Name Role Phone Estrella Muhammad MD Primary Care Provider Source Comments [facility],non-owned Affiliates and Associated Physician Practices is amultiple site organization consisting of ambulatory clinics and hospital sitesin [place], [place], [place] and [place]. This disclosure is being madepursuant to the Care Everywhere program and may not contain all information available regarding this patient. Last updated 18.[facility] Allergies Active Allergy Reactions Criticality Noted Date [...] PNEUMOCOCCAL PPSV23 11/07/2015 ZOSTER VACCINE, LIVE 01/02/2014 Family History Medical History Relation Name Comments CAD (Coronary Artery Disease) Brother 1 Carlos CHF CAD (Coronary Artery Disease) Brother 2 Mina Hyperlipidemia Brother 2 Mina Cancer - Other Brother 3 Jose Juan throat Cardiomyopathy Brother 3 Jose Juan CAD (Coronary Artery Disease) Brother 4 Meliton 4 stents Other - Musculoskeletal Brother 4 Meliton DJD back surgery Sleep Disorder - Other Brother 4 Meliton restl ess legs syndrome Cancer - Pancreatic Brother 5 Manohar Other Brother 5 Manohar not blood relat ed CAD (Coronary Artery Disease) Brother 6 Joel CVA Father Diabetes - Type 2 Father Other - Cardiac Father CHF Other - Cardiac Mother CHF Cancer - Breast Sister 1 Yesika Brain Tumor Sister 2 Laura Other Sister 2 Laura not blood relat sparkle Anxiety Disorder Sister 3 Daija Depression Sister 3 Daija Other Sister 3 Daija not blood relat ed Other - Cardiac Sister 3 Daija Sleep Disorder - Other Son restl ess legs sydnrome Relation Name Status Comments Brother 1 Carlos Brother 2 Mina Brother 3 Jose Jaun Alive Brother 4 Meliton Alive Brother 5 Manohar Brother 6 Joel Alive Father Mother Sister 1 Yesika Sister 2 Laura Sister 3 Daija Alive Sister 4 Abby Alive Son Alive Social History Tobacco Use Types Packs/Day Years [...] 01/02/2019 9:10 AM CDT Plan of Treatment Health Maintenance Due Date Last Done Comments BONE DENSITY TESTING 1955 COLOGUARD (AGES 45-75) - COLON CA SCREENING 1955 COLON MONITORING 1955 COLONOSCOPY - COLON CA SCREENING 1955 CT COLONOGRAPHY - COLON CA SCREENING 1955 Colorectal Cancer Screening 1955 FIT - COLON CA SCREENING 1955 FLEX SIG - COLON CA SCREENING 1955 MAMMOGRAM 1955 HEPATITIS C SCREENING 04/24/1973 DTAP/TDAP/TD VACCINES (1 - Tdap) 1974 ZOSTER VACCINE (2 of 3) 02/27/2014 01/02/2014 Respiratory Syncytial Virus (RSV) Vaccine Pt: or over 60 yrs (1 - Risk 60-74 years 1-dose series) 2015 PNEUMOCOCCAL VACCINE 50+ (2 of 2 - PCV) 11/06/2016 11/07/2015 SCREENING FOR DIABETES 01/02/2019 COVID-19 VACCINE ( - 2023- season) 2024 05/22/2021, 10/07/2020, 09/16/2020 INFLUENZA VACCINE (#1) 2024 0, 04/27/2019, 06/04/2018, Additional history exists DEPRESSION SCREENING 07/25/2024 HEPATITIS B VACCINE Aged Out No longe r eligible based on patient's age to complete this topic HIB VACCINE Aged Out No longer eligi ble based on patient's age to complete this topic HPV VACCINE Aged Out No longer eligi ble based on patient's age to complete this topic MENINGOCOCCAL (Group B) VACCINE Aged Out No longer eligible based on patient's age to complete this topic MENINGOCOCCAL VACCINE Aged Out No vazquez hua eligible based on patient's age to complete this topic Care Teams Rubber Thread Spooler Relationship Specialty Start Date End Date Estrella Muhammad MD [address] [place] [address] [place] [id number] PCP - General 02/06/18
--- OUTSIDE RECORDS SUMMARY | 2024-08-16 10:52 | XMS_ITS | Patient Health Summary ---
Author Organization [facility] Address [address] [place] [address] Care Team Providers Care Hide And Skin Fleshing Machine Operator Name Role Phone Estrella Muhammad MD Primary Care Provider Note from [facility],non-owned Affiliates and Associated Physician Practices is amultiple site organization consisting of ambulatory clinics and hospital sitesin [place], [place], [place] and [place]. This disclosure is being madepursuant to the Care Everywhere program and may not contain all information available regarding this patient. Last updated 18.[facility] Allergies * Codeine(Psychiatric) -Medium Criticality * Povidone Iodine(Itching) * Shellfish Allergy(Other) Medications * Be aware that medications may not be up to date on this document. Alwaysverify current medications with the patient. * BREO ELLIPTA 100-25 MCG/INH inhaler(Started 10/18/2018) Inhale 1 puff by mouth once daily * furosemide (LASIX) 20 MG tablet(Started 10/24/2018) Take 20 mg by mouth once daily * metoprolol succinate XL 24hr (TOPROL XL) 50 MG tablet(Started 10/16/2018) Take 50 mg by mouth once daily 1.5 tablets Daily * INCRUSE ELLIPTA 62.5 MCG/INH inhaler(Started 10/18/2018) Inhale 1 puff by mouth once daily * acyclovir (ZOVIRAX) 800 MG tablet Take 800 mg by mouth once daily * potassium chloride ER (KLOR-CON M) 10 MEQ tablet Take 10 mEq by mouth once daily * Multiple Vitamin (MULTI VITAMIN DAILY PO) * atorvastatin (LIPITOR) 10 MG tablet Take 10 mg by mouth at bedtime * Probiotic Product (PROBIOTIC DAILY PO) * albuterol HFA (PROVENTIL;VENTOLIN;PROAIR) 108 (90 BASE) MCG/ACT inhaler (Started 11/06/2018) Inhale 2 puffs by mouth every 6 hours as needed * omeprazole EC (PRILOSEC OTC) 20 MG tablet(Started 01/02/2019) Take 1 tablet by mouth 2 times daily 3 refills remaining * omeprazole (PRILOSEC) 20 MG capsule(Started 06/06/2019) TAKE 1 CAPSULE BY MOUTH TWICE DAILY 3 refills remaining Immunizations * INFLUENZA VACCINE(Given 05/10/2018) * PNEUMOCOCCAL PPSV23(Given 11/07/2015) * ZOSTER VACCINE, LIVE(Given 01/02/2014) Social History Tobacco Use Types Packs/Day Years [...] Mass Index 32.11 01/02/2019 9:10 AM CDT Procedures * BRONCHIAL CHALLENGE(Performed 01/22/2019) Performed for Uncomplicated asthma, unspecified asthma severity, unspecified whether persistent (HCC) * FRACTIONAL EXHALED NITRIC OXIDE(Performed 01/22/2019) Performed for Uncomplicated asthma, unspecified asthma severity, unspecified whether persistent (HCC) * PFT OXYGEN DESATURATION STUDY(Performed 01/22/2019) Performed for Uncomplicated asthma, unspecified asthma severity, unspecified whether persistent (HCC) * COMPLETE PFT W/WO BRONCHODILATOR(Performed 01/22/2019) Performed for Uncomplicated asthma, unspecified asthma severity, unspecified whether persistent (HCC) * SIX MINUTE WALK(Performed 01/22/2019) Performed for Uncomplicated asthma, unspecified asthma severity, unspecified whether persistent (HCC) * NV POLYSOM 6/>YRS CPAP 4/> PARM(Performed 01/02/2019) Performed for ASHLEY (obstructive sleep apnea) Results * FRACTIONAL EXHALED NITRIC OXIDE (01/22/2019 7:51 AM CDT) Impressions Evan Ko MD - 01/22/2019 7:51 AM CDT [facility] DEPARTMENT OF PULMONARY, CRITICAL CARE, AND SLEEP MEDICINE EXHALED NITRIC OXIDE (FeNO) Tomeka Melendez 01/19/2019 INTERPRETATION The measurement of fractional exhaled nitric oxide (FENO) was 32 ppb. IMPRESSION: 1. Normal high fractional exhaled nitric oxide. 2. No prior study to compare. Yanely Alva MD Pulmonary & Critical Care Fellow Division of Pulmonary, Critical Care and Sleep Medicine [facility] Pager: [phone] I have reviewed PFT interpretation by our fellow and have made necessary revisions. Evan HANA Manager Processrefractory worker, Division of Pulmonary, Critical Care, and Sleep Medicine Narrative Evan Ko MD - 01/22/2019 7:51 AM CDT Yanely Alva MD ? 01/19/2019 ??5:34 PM Papi German MD RESPIRATORY THERAPY ORDERABLES * BRONCHIAL CHALLENGE WITH METHACHOLINE (01/22/2019 7:51 AM CDT) Impressions Evan Ko MD - 01/22/2019 7:51 AM CDT [facility] DEPARTMENT OF PULMONARY, CRITICAL CARE, AND SLEEP MEDICINE METHACHOLINE CHALLENGE TEST Tomeka Melendez 01/19/2019 Yanely Alva MD INTERPRETATION Methacholine challenge test was performed with incremental doses of methacholine per protocol. There was a significant decrease noted in the FEV1 and there was a significant decrease in specific conductance. The PC 20 is 30.4 ug and PC35 is 9.8 ug. IMPRESSION 1. Positive Methacholine challenge test. Clinical correlation recommended. 2. Positive bronchial hyper-responsiveness. 3. No prior test is available for comparison. . Yanely Alva MD Pulmonary & Critical Care Fellow Division of Pulmonary, Critical Care and Sleep Medicine [facility] Pager: [phone] I have reviewed PFT interpretation by our fellow and have made necessary revisions. Evan HANA Manager Processrefractory worker, Division of Pulmonary, Critical Care, and Sleep Medicine Narrative Evan Ko MD - 01/22/2019 7:51 AM CDT Yanely Alva MD ? 01/19/2019 ??5:35 PM Papi German MD PFT ORDERABLES * PFT OXYGEN DESATURATION STUDY (01/22/2019 7:51 AM CDT) Impressions Evan Ko MD - 01/22/2019 7:51 AM CDT [facility] DEPARTMENT OF PULMONARY, CRITICAL CARE, AND SLEEP MEDICINE OXYGEN TITRATION STUDY Tomeka Lopez Nora 01/19/2019 INTERPRETATION The test was performed on the treadmill at a speed of 1 mph at room air. ??The patient was able to complete 4 minutes with lowest SpO2 of 98%. Then the treadmill speed was increased to 2 mph, the patient's SpO2 dropped to 98% at minute 2 and oxygen saturation remained above 98 throughout the test. IMPRESSION 1. At the above level of activity the patient's oxygen saturation remained 98 % and above on room air. The patient did not have a significant oxygen desaturation while walking at 2 mph for a total of 4 minutes. Yanely Alva MD Division of Pulmonary, Critical Care, & Sleep Medicine [facility] I have reviewed PFT interpretation by our fellow and have made necessary revisions. Evan Ko MD, MBA Manager Processrefractory worker, Division of Pulmonary, Critical Care, and Sleep Medicine Narrative Evan Ko MD - 01/22/2019 7:51 AM CDT Yanely Alva MD ? 01/19/2019 ??5:34 PM Papi German MD PFT ORDERABLES * COMPLETE PFT W/WO BRONCHODILATOR (01/22/2019 7:51 AM CDT) Impressions Evan Ko MD - 01/22/2019 7:51 AM CDT [facility] DEPARTMENT OF PULMONARY, CRITICAL CARE, AND SLEEP MEDICINE PULMONARY FUNCTION TEST Please see technologist's comments mentioned in the report. INTERPRETATION: SPIROMETRY: ?FVC: increased ?FEV1: increased ?FEV1/FVC ratio is normal. BRONCHODILATOR RESPONSE: not performed FLOW-VOLUME LOOPS: Normal flow-volume loops LUNG VOLUMES: Lung volumes by body plethysmography are increased DLCO: Unadjusted for Hb and COHb is increased DLCO: Corrected for Hb and COHb is: increased AIRWAY RESISTANCE: The airway resistance is normal and the specific conductance is normal ARTERIAL BLOOD GAS ANALYSIS: not performed IMPRESSION: 1. ??Normal spirometry 2. ??Hyperinflation, air trapping 3. . There is no previous study available for comparison Yanely Alva MD Pulmonary & Critical Care Fellow Division of Pulmonary, Critical Care and Sleep Medicine [facility] Pager: [phone] I have reviewed PFT interpretation by our fellow and have made necessary revisions. Evan Ko MD OREN Manager Processrefractory worker, Division of Pulmonary, Critical Care, and Sleep Medicine Narrative Evan Ko MD - 01/22/2019 7:51 AM CDT Yanely lAva MD ? 01/19/2019 ??5:34 PM Papi German MD RESPIRATORY THERAPY ORDERABLES * SIX MINUTE WALK (01/22/2019 7:51 AM CDT) Impressions Evan Ko MD - 01/22/2019 7:51 AM CDT [facility] DEPARTMENT OF PULMONARY, CRITICAL CARE, AND SLEEP MEDICINE SIX MINUTE WALK TEST Tomeka Melendez 01/19/2019 Interpretation: The patient walked for 6 minutes on room air and covered total distance of 278 meters. On the Mally scale at baseline, reported dyspnea was 0 and fatigue was 0. ??At the end of the study, the Mally reported dyspnea was 2 and fatigue was 4. ??There were dizziness and leg fatigue reported and oxygen saturation remained above 99% throughout the test. IMPRESSION: 1. Total 6 minute walk distance is 278 meters, which is below the lower limit of normal of 350 meters for this patient. 2. There is no available study for comparison. Yanely Alva MD Pulmonary & Critical Care Fellow Division of Pulmonary, Critical Care and Sleep Medicine [facility] Pager: [phone] I have reviewed PFT interpretation by our fellow and have made necessary revisions. Evan HANA Manager Processrefractory worker, Division of Pulmonary, Critical Care, and Sleep Medicine Narrative Evan Ko MD - 01/22/2019 7:51 AM CDT Yanely Alva MD ? 01/19/2019 ??5:34 PM Papi German MD RESPIRATORY THERAPY ORDERABLES * NV POLYSOM 6/>YRS CPAP 4/> PARM (01/02/2019 9:36 AM CDT) Narrative Papi German MD - 01/02/2019 9:36 AM CDT Papi German MD ? 01/02/2019 ??9:36 AM [facility] Accredited by the [place] [employer] [facility], First Floor [address] [place] [address] Telephone : [phone] ? Medical Records Patient Name: ??Tomeka Melendez : ??1955 Date of Study: ??01/01/2019 Referring Physician: ??No ref. provider found Type of Montage: ??Respiratory Scoring System: ??AASM 2.0 FULL NIGHT THERAPEUTIC POLYSOMNOGRAM INTERPRETATION Procedure: The polysomnogram was performed with a food technologist in attendance. ??Central, occipital, and temporal EEG, EOG, submentalis, EMG, airflow via positive airway pressure, thoracoabdominal motion, anterior tibialis EMG, snore sensor, and pulse oximetry were monitored. ??Sleep stages, periodic limb movements, and EEG arousals were scored in 30-second epochs according to the AASM Scoring Manual. ??Apnea-hypopnea index was calculated using the recommended definition of hypopnea for scoring events. ??Data acquisition, collection, and scoring have been validated and clinically correlated. Sleep History: Ms. Tomeka Melendez, a 63 year old female, was referred to the Sleep Disorders Clinic for the evaluation of obstructive sleep apnea (ASHLEY). Current Outpatient Prescriptions: ?acyclovir (ZOVIRAX) 800 MG tablet, Take 800 mg by mouth once daily, Disp: , Rfl: ?albuterol HFA (PROVENTIL;VENTOLIN;PROAIR) 108 (90 BASE) MCG/ACT inhaler, Inhale 2 puffs by mouth every 6 hours as needed, Disp: , Rfl: ?atorvastatin (LIPITOR) 10 MG tablet, Take 10 mg by mouth at bedtime, Disp: , Rfl: ?BREO ELLIPTA 100-25 MCG/INH inhaler, Inhale 1 puff by mouth once daily , Disp: , Rfl: ?furosemide (LASIX) 20 MG tablet, Take 20 mg by mouth once daily , Disp: , Rfl: ?INCRUSE ELLIPTA 62.5 MCG/INH inhaler, Inhale 1 puff by mouth once daily , Disp: , Rfl: ?metoprolol succinate XL 24hr (TOPROL XL) 50 MG tablet, Take 50 mg by mouth once daily 1.5 tablets Daily, Disp: , Rfl: ?Multiple Vitamin (MULTI VITAMIN DAILY PO), , Disp: , Rfl: ?omeprazole EC (PRILOSEC OTC) 20 MG tablet, Take 1 tablet by mouth 2 times daily, Disp: 180 tablet, Rfl: 3 ?potassium chloride ER (KLOR-CON M) 10 MEQ tablet, Take 10 mEq by mouth once daily, Disp: , Rfl: ?Probiotic Product (PROBIOTIC DAILY PO), , Disp: , Rfl: THERAPEUTIC STUDY Sleep Architecture: During this therapeutic study, the patient slept for 313 minutes and had decreased sleep efficiency of 75.9%. ??The patient's initial sleep latency was reduced at 6 minutes. ??The initial REM latency was reduced at 79 minutes. The wake after sleep onset time (WASO) was 94 minutes. The sleep architecture was as follows: ??stage N1: 5.8%; stage N2: 53.2%; stage N3: 22.4%; stage REM: 18.7%. Respiratory Analysis, Oximetry Data, and Snoring Profile: Continuous positive airway pressure (CPAP) was titrated from a minimum setting of 4 cmH2O to a maximum setting of 12 cmH2O. CPAP at the maximal level of 12 cmH2O was associated with a normal overall apnea-hypopnea index of 4.1 per hour, a normal respiratory-related arousal index of 4.1 per hour, a normal minimum oxygen saturation of 92% during REM sleep, and a normal minimum oxygen saturation of 93% during non-REM sleep. ??No snoring was detected at optimal CPAP level. ??The time spent with oxygen saturation less than 88% was 0 min. Periodic limb movement index: The patient's periodic limb movement index was within normal limits at 2.7 per hour. EEG Profile: The patient's total arousal index at maximal CPAP level of 12 cmH2O was within normal limits at 11.7 per hour. ?? There was no epileptiform activity during sleep. Cardiac profile: EKG showed normal sinus rhythm. ??No clinically significant arrhythmia was noted. Parasomnia Profile: No parasomnia was noted during this therapeutic study. IMPRESSION: CPAP at the maximal setting of 12 cmH2O was reasonably effective in ameliorating obstructive sleep apnea. RECOMMENDATIONS: Suggest further titration of CPAP beyond 12 cmH2O to ameliorate residual abnormal respiratory breathing events. Papi Blanco. ??MD Maxi, [facility], [facility], [facility] Slide Machine Tender, [facility] [place] Professor of Internal Medicine Adjunct Manager Process of Neurology Division of Pulmonary, Critical Care, and Sleep Medicine [facility] This note was electronically signed on 01/02/2019. CC: ??No referring provider defined for this encounter. Estrella Griggs MD Papi German MD PROCEDURE/MINOR COLTEN GICAL ORDERABLES Care Teams Hide And Skin Fleshing Machine Operator Relationship Specialty Start Date End Date Estrella Muhammad MD [address] [place] [id number] PCP - General 02/06/18
== END 2024-08-12 19:11 | disposition home or self-care (01) ==
PROVIDERS: Emergency Provider Nurse Practitioner Family; PCP Nurse Practitioner Adult Health
DX: S05.02XA Injury of conjunctiva and corneal abrasion without foreign body, left eye, initial encounter (principal); X58.XXXA Exposure to other specified factors, initial encounter; Z87.891 Personal history of nicotine dependence; E78.5 Hyperlipidemia, unspecified; R73.03 Prediabetes; I25.10 Atherosclerotic heart disease of native coronary artery without angina pectoris; G47.33 Obstructive sleep apnea (adult) (pediatric); J45.909 Unspecified asthma, uncomplicated; M06.9 Rheumatoid arthritis, unspecified; Z79.82 Long term (current) use of aspirin
CPT/HCPCS: 99213; A9270; G0463

== ENCOUNTER 2024-08-20 10:30 | Outpatient (RCR) | payer BC, SELFPAY | END 2024-08-20 23:59 | disposition home or self-care (01) | LOC: ANHAUDIO 10:30 | PROVIDERS: PCP Nurse Practitioner Adult Health; Visit Provider Nurse Practitioner Adult Health | DX: Z46.1 Encounter for fitting and adjustment of hearing aid (principal) | CPT/HCPCS: 99199; V5260 ==

== ENCOUNTER 2024-09-24 08:06 | Outpatient (CLI) | payer BC, SELFPAY | END 2024-09-24 08:07 | disposition home or self-care (01) | LOC: ANHIMG 08:08 | PROVIDERS: PCP Nurse Practitioner Adult Health; Visit Provider Nurse Practitioner Adult Health | DX: Z12.31 Encounter for screening mammogram for malignant neoplasm of breast (principal) | CPT/HCPCS: 77063; 77067 ==

== ENCOUNTER 2024-12-26 09:12 | Outpatient (CLI) | payer BC, SELFPAY ==
--- OUTSIDE RECORDS SUMMARY | 2024-12-26 09:20 | XMS_ITS | Clinical Summary ---
Author Organization [facility] Address [address] [place] [address] Care Team Providers Care Food Services Coordinator Name Role Phone Estrella Muhammad MD Primary Care Provider Source Comments [facility],non-owned Affiliates and Associated Physician Practices is amultiple site organization consisting of ambulatory clinics and hospital sitesin [place], [place], [place] and [place]. This disclosure is being madepursuant to the Care Everywhere program and may not contain all information available regarding this patient. Last updated 18.[facility] Allergies Active Allergy Reactions Criticality Noted Date Comments Codeine Psychiatric Medium 11/06/2018 Povidone Iodine Itching 11/06/2018 Shellfish Allergy Other 11/06/2018 Blocks her throat, itching and blistering Medications * Be aware that medications may not be up to date on this document. Alwaysverify current medications with the patient. BREO ELLIPTA 100-25 MCG/INH inhaler Inhale 1 [...] bedtime Active Probiotic Product (PROBIOTIC DAILY PO) Active albuterol HFA (PROVENTIL;ODILON SHAN;PROAIR) 108 (90 BASE) MCG/ACT inhalerIndicatio ns:Uncomplicated asthma, unspecified asthma severity, unspecified whether persistent (HCC) Inhale 2 puffs by mouth every 6 hours as needed 11/06/2018 Active omeprazole EC (PRILOSEC OTC) 20 MG tabletIndication s:Gastroesophage al reflux disease, esophagitis presence not specified Take 1 tablet by mouth 2 times daily 180 tablet 3 01/02/2019 Active omeprazole (PRILOSEC) 20 MG capsuleIndicatio ns:Gastroesophag eal reflux disease, esophagitis presence not specified TAKE 1 CAPSULE BY MOUTH TWICE DAILY 180 capsule 3 06/06/2019 Active Immunizations Immunization Administration Dates Next Due INFLUENZA VACCINE 05/10/2018 [...] Carlos Brother 2 Mina Brother 3 Jose Juan Alive Brother 4 Meliton Alive Brother 5 [...] at Not on file Legal Sex Female 6:32 PM CDT Gender Identity Not on file Sexual Orientation Not on file 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 on file Not on file [employer]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 Not on file Not on file Last Filed Vital Signs Vital Sign Reading Time Taken Comments Blood Pressure 121/74 11/06/2018 3:20 PM CDT Pulse 70 11/06/2018 3:20 PM CDT Temperature - - Respiratory Rate - - Oxygen Saturation - - Inhaled Oxygen Concentration - - Weight 72.1 kg (159 lb) 01/02/2019 9:10 AM CDT Height 149.9 cm (4' 11) 01/02/2019 9:10 AM CDT Body Mass Index [...] - PCV) 11/06/2016 11/07/2015 SCREENING FOR DIABETES 03/20/2021 03/20/2018 COVID-19 VACCINE ( - season) 2024 05/22/2021, 10/07/2020, 09/16/2020 DEPRESSION SCREENING 07/25/2024 INFLUENZA VACCINE (Season Ended) 2025 06/24/2020, 04/27/2019, 06/04/2018, Additional history exists HEPATITIS B VACCINE Aged Out No longe r eligible based on patient's age to complete this topic HIB VACCINE Aged Out No longer eligi ble based on patient's age to complete this topic HPV VACCINE Aged Out No longer eligi ble based on patient's age to complete this topic MENINGOCOCCAL (Group B) VACCINE SHARED DECISION-MAKING Aged Out No longer eligible based on patient's age to complete this topic MENINGOCOCCAL GROUPS A/C/Y/W VACCINE Aged Out No longer eligible based on patient's age to complete this topic Insurance ANTHEM Care Teams Food Services Coordinator Relationship Specialty Start Date End Date Estrella Muhammad MD [address] [place] [address] [place] [address] PCP - General 02/06/18
--- OUTSIDE RECORDS SUMMARY | 2024-12-26 09:20 | XMS_ITS | CONTINUITY OF CARE DOCUMENT ---
Author Name abelino roca Address Unknown Organization [facility] Address [address] [place] [address] [address] [place] [address] Phone [phone] Care Team Providers Care Nursery School Attendant Name Role Phone Ganga OKEEFE, Unavailable [phone] BETZAIDA OKEEFE, MARCIAL Unavailable BETZAIDA OKEEFE, MARCIAL Unavailable [phone] INSURANCE PROVIDERS Payer name Policy type / Coverage type [place] red libertarian ID [facility] [id number]
--- OUTSIDE RECORDS SUMMARY | 2024-12-26 09:20 | XMS_ITS | Clinical Summary ---
Author Organization [facility] [address] Address [address] [place] [address] Care Team Providers Care Insurance Rater Name Role Phone Chionuzhat Gail ELLIOTT Primary Care Provider [phone] Allergies Active Allergy Reactions Criticality Noted Date Comments Codeine Iodine Medium Other Other (See comments) Low 11/06/2018 Blocks her throat, itching and blistering White Petrolatum Unknown Medium Shellfish Derived Anaphylaxis High 03/19/2022 Medications omeprazole (PriLOSEC) 20 mg capsule Take 1 capsule (20 mg total) by mouth daily Active cyclobenzaprine (FLEXERIL) 10 mg tablet Take 1 tablet (10 mg total) by mouth 2 (two) times a day as needed for muscle spasms Active meloxicam (MOBIC) 15 mg tablet Take 1 tablet (15 mg total) by mouth daily Active acyclovir (ZOVIRAX) 800 mg tablet Take 1 tablet (800 mg total) by mouth daily Active cholecalciferol (VITAMIN D-3) 50,000 unit capsule Take 1 capsule (50,000 Units total) by mouth once a week Active acidophilus-pect in, citrus 100 million cell-10 mg capsule Take [...] pain Max 3 doses. 30 tablet 11 2 12/11/19 26 Active fluticasone propionate (FLONASE) 50 mcg/actuation nasal spray Administer 1 spray into each nostril daily Active EPINEPHrine 0.3 mg/0.3 mL auto-injection syringe INJECT 0.3MG IN THE MUSCLE ONE TIME DIRECTED IF CONTACT WITH SHELLFISH 2 Active famotidine (PEPCID) 40 mg tablet Take 1 tablet (40 mg total) by mouth daily 2 Active hydroCHLOROthiaz han (MICROZIDE) 12.5 mg capsule Take 1 capsule (12.5 mg total) by mouth daily 2 Active metFORMIN XR (GLUCOPHAGE XR) 500 mg 24 hr tablet daily Active montelukast (SINGULAIR) 10 mg tablet Take 1 tablet (10 mg total) by mouth daily 2 Active rosuvastatin (CRESTOR) 10 mg tablet Take 1 tablet (10 mg total) by mouth daily 2 Active potassium chloride ER 20 mEq CR tablet Take 1 tablet (20 mEq total) by mouth daily 4 Active fluticasone-umec lidin-vilanter (Trelegy Ellipta) 200-62.5-25 mcg inhaler Inhale 1 puff daily 30 each 4 Active albuterol HFA (PROVENTIL HFA,VENTOLIN HFA,PROAIR HFA) 90 mcg/actuation inhaler Inhale 2 puffs every 6 (six) hours as needed for wheezing or shortness of breath 1 each 4 Active Wegovy 0.25 mg/0.5 mL auto-injector Inject 0.5 mL (0.25 mg total) under the skin every 7 days 4 Active metoprolol XL (TOPROL-XL) 50 mg extended release tablet TAKE 1 AND 1/2 TABLETS(75 MG) BY MOUTH DAILY 135 tablet 5 Active furosemide (LASIX) 20 mg tablet TAKE 1 TABLET(20 MG) BY MOUTH TWICE DAILY 180 tablet 5 Active dupilumab (Dupixent Pen) pen injectorIndicati ons:Severe persistent asthma without complication (HCC) Inject 4 mL (600 mg total) under the skin once for 1 dose 4 mL 5 Active Additional Information Patient not taking.Reported on 12/10/2024 dupilumab (Dupixent Pen) pen injectorIndicati ons:Severe persistent asthma without complication (HCC) Inject 2 mL (300 mg total) under the skin every 14 (fourteen) days 4 mL 11 5 Active Active Problems Problem Noted Date Diagnosed Date Severe persistent asthma without complication Assessment & Plan (10/19/2024 9:11 AM CDT): Continue Trelegy Ellipta 200 one puff daily Albuterol as needed only, she is aware of indications for use Avoid triggers Her last eosinophil count was 400 on 06/14/2024. As she is not well controlled on Trelegy Ellipta 200, with frequent albuterol use and multiple exacerbations I recommend starting her on a biologic. We have discussed use, frequency and side effects. She is interested in proceeding with therapy, I signed the order today. We have discussed signs and symptoms that would require earlier evaluation or change to her plan of care Assessment & Plan (06/14/2024 2:15 PM REVERSER): Continue Trelegy Ellipta 200 one puff daily Albuterol as needed only, we have discussed indications for use Avoid triggers Check CBC to assess for peripheral eosinophilia We have discussed signs and symptoms that would require earlier evaluation or change to her plan of care Centrilobular emphysema 06/14/2024 Assessment & Plan (10/17/2024 11:57 AM CDT): Continue maintenance inhaled therapy with Trelegy Ellipta 200 She had decreased DLCO on pulmonary function testing and some mild emphysematous changes per her CT chest. She does have a smoking history, about 20 pack years, quit in the early 1999s. Requested Alpha1 results from [facility] Assessment & Plan (06/14/2024 2:17 PM REVERSER): Continue maintenance inhaled therapy with Trelegy Ellipta 200 She had decreased DLCO on pulmonary function testing and some mild emphysematous changes per her CT chest. Request Alpha1 results from [facility] Gastroesophageal reflux disease without esophagi tis 06/14/2024 Assessment & Plan (06/14/2024 2:16 PM REVERSER): Continue PPI twice daily Continue famotidine 40 [...] 12/04/2021 Family history of premature CAD 12/04/2021 Recurrent chest pain 03/20/2018 TERAN (dyspnea on exertion) 03/20/2018 Chronic fatigue 03/20/2018 Chronic diastolic heart failure 03/20/2018 ASHLEY on CPAP 03/20/2018 Assessment & Plan (10/17/2024 11:41 AM CDT): Continue consistent PAP use with all sleep I have encouraged her to follow with sleep medicine and she is aware of the risks of uncorrected ASHLEY. HTN (hypertension), benign 03/20/2018 Mixed hyperlipidemia 03/20/2018 Encounters Date Type Department Care Team Description 12/10/2024 11:00 AM CDT Ancillary Procedure [facility] Cardiology at [address] [phone] Palpitations 12/10/2024 10:00 AM CDT Office Visit [facility] Cardiology at [address] [phone] Jason Gomez MD Palpitations (Primary Dx); Recurrent chest pain; Chronic diastolic heart failure (HCC); HTN (hypertension), benign; Mixed hyperlipidemia; ASHLEY on CPAP 10/23/2024 Orders Only [facility] Pulmonary at [address] [place] [phone] Catherine Cisneros LPN Severe persistent asthma without complication (HCC) (Primary Dx) 10/18/2024 Telephone [facility] Pulmonary at [address] [place] [phone] Catherine Cisneros LPN Dupixent approval 10/16/2024 1:30 PM CDT Office Visit [facility] Pulmonary at [address] [place] [address] Dalia Colón, ELLIOTT Severe persistent asthma without complication (HCC) (Primary Dx); Centrilobular emphysema (HCC); ASHLEY on CPAP from Last 3 Months Surgical History Surgery Date Site/Laterality Comments BACK SURGERY PELVIC LAPAROSCOPY Medical History Medical History Date Comments CHF (congestive heart failure) (HCC) Hyperlipidemia Hypertension Asthma Chest pain Shortness [...] Used Date Smoking Tobacco: Former Cigarettes 0.3 51.4 S tarted: 1974 Smokeless Tobacco: Never Tobacco [...] on file Legal Sex Female 12:31 AM REVERSER Gender Identity Not on file Sexual Orientation Not on file Obstetrics History Last Filed Vital Signs Vital Sign Reading Time Taken Comments Blood Pressure 104/60 12/10/2024 10:25 AM CDT Pulse 77 12/10/2024 10:25 AM CDT Temperature 36.2 C (97.2 F) 10/16/2024 1:20 PM CDT Respiratory Rate 16 06/14/2024 10:52 AM REVERSER Oxygen Saturation 94% 12/10/2024 10:25 AM CDT Inhaled Oxygen Concentration - - Weight 71.7 kg (158 lb) 12/10/2024 10:25 AM CDT Height 149.2 cm (4' 10.75) 12/10/2024 10:25 AM CDT Body Mass Index 32.18 12/10/2024 10:25 AM CDT Plan of Treatment Health Maintenance [...] 5 season) 2024 10/07/2020, 09/16/2020 Influenza Vaccine (Season Ended) 2025 04/15/2021, 05/02/2020, 04/27/2019, Additional history exists Procedures Procedure Name Priority Date/Time Associated Diagnosis Comments POCT LIPID PANEL Routine 12/10/2024 10:2 1 AM CDT Mixed hyperlipidemia from Last 3 Months Results * (ABNORMAL) POCT lipid panel (12/10/2024 10:21 AM CDT) Cholesterol, POC 271 <200 MG/DL HDL, POC 60 >=40 mg/dL Triglycerides, POC 226(A) <=149 mg/dL LDL Cholesterol POC 166(A) <=129 mg/dL Chol/HDL Ratio, POC 4.5 NONE Non-HDL Cholesterol, POC 211 NONE mg/dL Cholesterol Total, POC 271(A) 30 - 199 mg/dL Capillary blood 12/10/2024 1 0:21 AM CDT us Jason Gomez MD POINT OF CARE TEST ORDERA BLES Final Result from Last 3 Months Insurance [facility] [place] [id number] MEDICARE [facility] Care Teams Insurance Rater Relationship Specialty Start Date End Date Gail Solis NP [facility] [place] [address] PCP - General Nurse Practitioner 05/18/24
--- OUTSIDE RECORDS SUMMARY | 2024-12-26 09:20 | XMS_ITS | Referral Summary ---
Author Organization [facility] [address] Address [address] [place] [address] Care Team Providers Care [employer]ishing [employer] Name Role Phone Gail Solis NP Primary Care Provider [phone] Encounters Date Type Department Care Team Description 12/10/2024 11:00 AM CDT Ancillary Procedure [facility] Cardiology at [address] [place] [phone] Palpitations 12/10/2024 10:00 AM CDT Office Visit [facility] Cardiology at [address] [place] [address] Jason Gomez MD Palpitations (Primary Dx); Recurrent chest pain; Chronic diastolic heart failure (HCC); HTN (hypertension), benign; Mixed hyperlipidemia; ASHLEY on CPAP 10/23/2024 Orders Only [facility] Pulmonary at [address] [place] [phone] Catherine Cisneros LPN Severe persistent asthma without complication (HCC) (Primary Dx) 10/18/2024 Telephone [facility] Pulmonary at [address] [place] [phone] Catherine Cisneros LPN Dupixent approval 10/16/2024 1:30 PM CDT Office Visit [facility] Pulmonary at [address] [place] [phone] Dalia Colón NP Severe persistent asthma without complication (HCC) (Primary Dx); Centrilobular emphysema (HCC); ASHLEY on CPAP from Last 3 Months Allergies Active Allergy [...] care Assessment & Plan (06/14/2024 2:15 PM GREIGE MENDER): Continue Trelegy Ellipta 200 one puff daily [...] 20 pack years, quit in the early . Requested Alpha1 results from [facility] Assessment & Plan (06/14/2024 2:17 PM GREIGE MENDER): Continue maintenance inhaled therapy with Trelegy Ellipta 200 She had decreased DLCO on pulmonary function testing and some mild emphysematous changes per her CT chest. Request Alpha1 results from [facility] Gastroesophageal reflux disease without esophagi tis 06/14/2024 Assessment & Plan (06/14/2024 2:16 PM GREIGE MENDER): Continue PPI twice daily Continue famotidine 40 [...] on file Legal Sex Female 12:31 AM GREIGE MENDER Gender Identity Not on file Sexual Orientation Not on file Last Filed Vital Signs Vital Sign Reading Time Taken Comments Blood Pressure 104/60 12/10/2024 10:25 AM CDT Pulse 77 12/10/2024 10:25 AM CDT Temperature 36.2 C (97.2 F) 10/16/2024 1:20 PM CDT Respiratory Rate 16 06/14/2024 10:52 AM GREIGE MENDER Oxygen Saturation 94% 12/10/2024 10:25 AM CDT Inhaled Oxygen Concentration - - Weight 71.7 kg (158 lb) 12/10/2024 10:25 AM CDT Height 149.2 cm (4' 10.75) 12/10/2024 10:25 AM CDT Body Mass Index 32.18 12/10/2024 10:25 AM CDT Plan of Treatment Not on file Procedures [...] Capillary blood 12/10/2024 1 0:21 AM CDT Jason Gomez MD POINT OF CARE TEST ORDERA BLES Final Result from Last 3 Months Insurance [facility] MEDICARE [facility] Care Teams Cook Fishing Vessel Relationship Specialty Start Date End Date Gail Solis NP [address] [place] [address] [place] [address] PCP - General Nurse Practitioner 05/18/24
[2024-12-26 21:16] LABS: Alanine Aminotransferase 33 U/L (6-35); Albumin Level 4.3 g/dL (3.5-5.1); Alkaline Phosphatase 94 U/L (38-126); Anion Gap 7 mmol/L (4-12); Aspartate Amino Transferase 57 U/L (14-36); Bilirubin,Total 0.6 mg/dL (0.2-1.3); Blood Urea Nitrogen 28 mg/dL (7-17); Calcium 9.9 mg/dL (8.4-10.2); Carbon Dioxide 29 mmol/L (22-30); Chloride 103 mmol/L (98-107); Cholesterol 280 mg/dL (0-200); Estimated Glomerular Filt Rate > 60; Glucose 93 mg/dL (65-110); HDL Direct 74 mg/dL; Potassium 4.5 mmol/L (3.4-5.0); Sodium 139 mmol/L (137-145); Total Protein 7.6 g/dL (6.3-8.2); Triglycerides 246 mg/dL (<150)
[2024-12-26 21:23] LABS: Vitamin D 25 Hydroxy 40.1 ng/mL
[2024-12-26 21:27] LABS: LDL Cholesterol Direct 154 mg/dL
[2024-12-26 22:08] LABS: Hemoglobin A1C 5.8 % (<5.7)
== END 2024-12-26 09:13 | disposition home or self-care (01) ==
LOC: ANHBWCLAB 09:14
PROVIDERS: PCP Nurse Practitioner Adult Health; Visit Provider Nurse Practitioner Adult Health
DX: E78.5 Hyperlipidemia, unspecified (principal); R73.03 Prediabetes; E55.9 Vitamin D deficiency, unspecified; Z51.81 Encounter for therapeutic drug level monitoring
CPT/HCPCS: 36415; 80053; 80061; 82306; 82607; 83036

== ENCOUNTER 2025-06-27 11:01 | Outpatient (CLI) | payer BC, SELFPAY ==
[2025-06-27 18:26] LABS: Hematocrit 36.0 % (37.0-47.0); Hemoglobin 11.5 g/dL (12.0-15.0); Immature Granulocyte Percent A 0.4 % (0-0.5); Lymphocytes Absolute Auto 2.33 K/mm3 (0.9-3.2); Mean Corpuscular HGB Conc 31.9 g/dl (32-36); Mean Corpuscular Hemoglobin 26.6 pg (26-34); Mean Corpuscular Volume 83.1 fl (80-100); Nucleated Red Blood Cells Absolute Auto 0.000 K/mm3 (0.0-0.012); Nucleated Red Blood Cells Perc 0.0 % (0.0-0.2); Platelet Count Result 275 k/mm3 (150-375); Red Blood Count 4.33 M/mm3 (4.2-5.4); White Blood Count 9.5 K/mm3 (4.5-10.0)
[2025-06-27 18:30] LABS: Alanine Aminotransferase 34 U/L (6-35); Albumin Level 4.4 g/dL (3.5-5.1); Alkaline Phosphatase 128 U/L (38-126); Anion Gap 7 mmol/L (4-12); Aspartate Amino Transferase 62 U/L (14-36); Bilirubin,Total 1.0 mg/dL (0.2-1.3); Blood Urea Nitrogen 16 mg/dL (7-17); Calcium 9.4 mg/dL (8.4-10.2); Carbon Dioxide 26 mmol/L (22-30); Chloride 104 mmol/L (98-107); Cholesterol 199 mg/dL (0-200); Estimated Glomerular Filt Rate > 60; Glucose 106 mg/dL (65-110); HDL Direct 62 mg/dL; Potassium 3.8 mmol/L (3.4-5.0); Sodium 137 mmol/L (137-145); Total Protein 7.5 g/dL (6.3-8.2); Triglycerides 140 mg/dL (<150)
[2025-06-27 18:54] LABS: Hemoglobin A1C 6.1 % (<5.7)
[2025-06-27 19:24] LABS: Vitamin B12 715.0 pg/mL (239-931)
== END 2025-06-27 11:02 | disposition home or self-care (01) ==
LOC: ANHBWCLAB 11:02
PROVIDERS: PCP Nurse Practitioner Adult Health; Visit Provider Nurse Practitioner Adult Health
DX: E78.5 Hyperlipidemia, unspecified (principal); Z51.81 Encounter for therapeutic drug level monitoring; E55.9 Vitamin D deficiency, unspecified; Z79.899 Other long term (current) drug therapy
CPT/HCPCS: 36415; 80053; 80061; 82306; 82607; 83036; 85025

== ENCOUNTER 2025-07-05 08:30 | Outpatient (CLI) | payer BC, SELFPAY ==
--- NOTE | ~2025-07-05 | CT_ITS ---
EXAMINATION:CT diagnostic chest wo con DATE: 07/05/2025 08:48 INDICATION: Shortness of breath TECHNIQUE: Computed tomography (CT) of the chest was performed without intravenous contrast. The dose-length product (DLP) was 392.61 mGy-cm. COMPARISON: May 02, 2010 FINDINGS: Minimal scattered fibrotic appearing changes; the lungs are otherwise clear with no consolidation effusion or pneumothorax. Heart and great vessels appear stable. Central large airways are patent. No acute process seen in the visualized portions of the upper abdomen, bony thorax or extrathoracic soft tissues. Diffuse degenerative changes throughout the thoracic spine. Cholecystectomy clips in the upper abdomen. IMPRESSION: No focal acute process. Chronic appearing findings as above. Reviewed, dictated and finalized at location A. COMPRESSOR OPERATOR
== END 2025-07-05 08:31 | disposition home or self-care (01) ==
LOC: MICIMG 08:32
PROVIDERS: PCP Nurse Practitioner Adult Health; Visit Provider Nurse Practitioner
DX: Z77.090 Contact with and (suspected) exposure to asbestos (principal)
CPT/HCPCS: 71250